=== PATIENT | male | born 1960 | race Caucasian/White ===

== ENCOUNTER 2017-11-04 23:19 | Inpatient (IN) | payer MEDICARE ==
[2017-11-05 00:22] LABS: Basophils % (A) 0 %; Eosinophils # (A) 0.3 k/uL (0-0.7); Eosinophils % (A) 3 %; HCT 43.4 % (39.0-53.0); HGB 13.7 gm/dL (13.0-17.5); Lymphocytes # (A) 2.6 k/uL (1.0-4.8); Lymphocytes % (A) 29 %; MCH 30.1 pg (25.0-35.0); MCHC 31.7 g/dL (31.0-37.0); Mean Platelet Volume 7.4; Monocytes # (A) 0.6 k/uL (0-1.0); Monocytes % (A) 7 %; Neutrophils # (A) 5.3 k/uL (1.3-7.7); Neutrophils % (A) 59 %; Platelet Count 204 k/uL (150-450); RBC 4.57 m/uL (4.30-5.90); RDW 13.8 % (11.5-15.5)
--- NOTE | 2017-11-05 00:22 | ED ---
General Adult HPI - General Chief complaint: Shortness of Breath Stated complaint: SOB Source: patient Mode of arrival: ambulatory Limitations: no limitations - History of Present Illness Initial comments: Dictation was produced using [employer] dictation software. please excuse any grammatical, word or spelling errors. Chief Complaint: 56-year-old male past medical history of COPD, diabetes, dyslipidemia, hypertension presents with 1 day of shortness of breath. History of Present Illness: States that he woke up today with some shortness of breath. Patient states his symptoms have been troublesome for the past couple months. Patient reports a 30 pound weight gain over the last 3 months. Patient denies any cardiac history. His have a history of COPD for which she takes steroid inhalers. Patient denies any constitutional symptoms. No cough productive of sputum. Patient has a history of blood clots. He reports worsening swelling to bilateral lower extremities. The ROS documented in this emergency department record has been reviewed and confirmed by me. Those systems with pertinent positive or negative responses have been documented in the HPI. All other systems are other negative and/or noncontributory. - Related Data Home Medications Medication Instructions Recorded Confirmed Bisoprolol-Hctz 5-6.25 mg [Ziac 1 each PO DAILY 08/19/15 08/21/15 5-6.25] Diphenox-Atrop 2.5-0.025 mg 1 each PO TID PRN 08/19/15 08/21/15 [Lomotil] Simvastatin [Zocor] 20 mg PO DAILY 08/19/15 08/21/15 Tamsulosin [Flomax] 0.4 mg PO DAILY 08/19/15 08/21/15 fentaNYL [Duragesic 75MCG/HR] 75 mcg TRANSDERM Q72H 08/19/15 08/21/15 Allergies Allergy/AdvReac Type Severity Reaction Status Date / Time No Known Allergies Allergy Verified 11/04/17 23:30 Review of Systems ROS Statement: Those systems with pertinent positive or pertinent negative responses have been documented in the HPI. ROS Other: All systems not noted in ROS Statement are negative. Past Medical History Past Medical History: Cancer, Diabetes Mellitus, Hyperlipidemia, Hypertension Additional Past Medical History / Comment(s): speech impediment. COLON CA-DX 5- 6 YRS AGO History of Any Multi-Drug Resistant Organisms: None Reported Past Surgical History: Heart Catheterization, Heart Catheterization With Stent, Hernia Repair Additional Past Surgical History / Comment(s): COLONOSCOPY Past Anesthesia/Blood Transfusion Reactions: No Reported Reaction Date of Last Stent Placement:: NOT SURE OF DATE Past Psychological History: No Psychological Hx Reported Smoking Status: Current every day smoker Past Alcohol Use History: None Reported Past Drug Use History: None Reported - Past Family History Mother Family Medical History: Cancer General Exam - General Exam Comments Initial Comments: PHYSICAL EXAM: General Impression: Alert and oriented x3, not in acute distress HEENT: Normocephalic atraumatic, extra-ocular movements intact, pupils equal and reactive to light bilaterally, mucous membranes moist. Cardiovascular: Heart regular rate and rhythm, S1&S2 audible, no murmurs, rubs or gallops Chest: Bilateral crackles Abdomen: Bowel sounds present, abdomen soft, non-tender, non-distended, no organomegaly Musculoskeletal: Pulses present and equal in all extremities, 3+ pitting edema to bilateral lower extremities Motor: Power 5/5 bilaterally, no focal deficits noted Neurological: CN II-XII grossly intact, no focal motor or sensory deficits noted Skin: Intact with no visualized rashes Psych: Normal affect and mood Limitations: no limitations Course Vital Signs 11/04/17 11/05/17 23:25 01:05 Temperature 98.2 F Pulse Rate 91 Respiratory 21 20 Rate Blood Pressure 166/88 O2 Sat by Pulse 97 Oximetry Medical Decision Making - Medical Decision Making ED course: 76-year-old male presents chief complaint of dyspnea. Vital signs upon arrival shows blood pressure 166/88. Patient having symptoms of orthopnea, lower extremity swelling. There is strong clinical suspicion that patient's symptoms represent congestive heart failure. Patient denies any history of CHF. EKG does not show any findings of ischemia.Laboratory evaluation obtained. Metabolic panel is unremarkable. Coag panel unremarkable. D-dimer is 0.71. Metabolic panel shows no acute processes. Chest x-ray was obtained showing interval improvement from most recent chest x- ray. Given elevated d-dimer CT angiogram of the chest was obtained. There is findings of bolus emphysema. However there are findings suggestive of left lower lobe pulmonary emboli. Patient given heparin bolus and started on heparin. Patient is hemodynamically stable right now. Patient be admitted to internal medicine for further evaluation. Cardiac enzymes are normal. No suspicion of submassive PE. This point no indication to place patient in selective or ICU. Patient admitted to the floor. EKG interpretation: Ventricular rate 78,. Interval 150, QRS 72, QTc 4:30 no findings to suggest right heart strain.. No HI prolongation, no QTC prolongation , no ST or T-wave changes noted. . Overall, this EKG is unremarkable - Lab Data Result diagrams: 11/05/17 00:12 11/05/17 00:12 Lab Results 11/05/17 11/05/17 11/05/17 Range/Units 00:12 00:12 00:12 WBC 9.0 (3.8-10.6) k/uL RBC 4.57 (4.30-5.90) m/uL Hgb 13.7 (13.0-17.5) gm/dL Hct 43.4 (39.0-53.0) % MCV 95.0 (80.0-100.0) fL MCH 30.1 (25.0-35.0) pg MCHC 31.7 (31.0-37.0) g/dL RDW 13.8 (11.5-15.5) % Plt Count 204 (150-450) k/uL Neutrophils % 59 % Lymphocytes % 29 % Monocytes % 7 % Eosinophils % 3 % Basophils % 0 % Neutrophils # 5.3 (1.3-7.7) k/uL Lymphocytes # 2.6 (1.0-4.8) k/uL Monocytes # 0.6 (0-1.0) k/uL Eosinophils # 0.3 (0-0.7) k/uL Basophils # 0.0 (0-0.2) k/uL PT (9.0-12.0) sec INR (<1.2) APTT (22.0-30.0) sec D-Dimer (<0.60) mg/L FEU Sodium 136 L (137-145) mmol/L Potassium 4.0 (3.5-5.1) mmol/L Chloride 106 (98-107) mmol/L Carbon Dioxide 23 (22-30) mmol/L Anion Gap 7 mmol/L BUN 18 (9-20) mg/dL Creatinine 0.90 (0.66-1.25) mg/dL Est GFR (CKD-EPI)AfAm >90 (>60 ml/min/1.73 sqM) Est GFR (CKD-EPI)NonAf >90 (>60 ml/min/1.73 sqM) Glucose 156 H (74-99) mg/dL Calcium 8.8 (8.4-10.2) mg/dL Magnesium 1.7 (1.6-2.3) mg/dL Total Bilirubin 0.3 (0.2-1.3) mg/dL AST 22 (17-59) U/L ALT 27 (21-72) U/L Alkaline Phosphatase 47 (38-126) U/L Total Creatine Kinase 99 (55-170) U/L CK-MB (CK-2) 0.9 (0.0-2.4) ng/mL CK-MB (CK-2) Rel Index 0.9 Troponin I <0.012 (0.000-0.034) ng/mL NT-Pro-B Natriuret Pep pg/mL Total Protein 6.4 (6.3-8.2) g/dL Albumin 3.7 (3.5-5.0) g/dL 11/05/17 11/05/17 Range/Units 00:12 00:12 WBC (3.8-10.6) k/uL RBC (4.30-5.90) m/uL Hgb (13.0-17.5) gm/dL Hct (39.0-53.0) % MCV (80.0-100.0) fL MCH (25.0-35.0) pg MCHC (31.0-37.0) g/dL RDW (11.5-15.5) % Plt Count (150-450) k/uL Neutrophils % % Lymphocytes % % Monocytes % % Eosinophils % % Basophils % % Neutrophils # (1.3-7.7) k/uL Lymphocytes # (1.0-4.8) k/uL Monocytes # (0-1.0) k/uL Eosinophils # (0-0.7) k/uL Basophils # (0-0.2) k/uL PT 9.7 (9.0-12.0) sec INR 1.0 (<1.2) APTT 24.7 (22.0-30.0) sec D-Dimer 0.71 H (<0.60) mg/L FEU Sodium (137-145) mmol/L Potassium (3.5-5.1) mmol/L Chloride (98-107) mmol/L Carbon Dioxide (22-30) mmol/L Anion Gap mmol/L BUN (9-20) mg/dL Creatinine (0.66-1.25) mg/dL Est GFR (CKD-EPI)AfAm (>60 ml/min/1.73 sqM) Est GFR (CKD-EPI)NonAf (>60 ml/min/1.73 sqM) Glucose (74-99) mg/dL Calcium (8.4-10.2) mg/dL Magnesium (1.6-2.3) mg/dL Total Bilirubin (0.2-1.3) mg/dL AST (17-59) U/L ALT (21-72) U/L Alkaline Phosphatase (38-126) U/L Total Creatine Kinase (55-170) U/L CK-MB (CK-2) (0.0-2.4) ng/mL CK-MB (CK-2) Rel Index Troponin I (0.000-0.034) ng/mL NT-Pro-B Natriuret Pep 100 pg/mL Total Protein (6.3-8.2) g/dL Albumin (3.5-5.0) g/dL Disposition Clinical Impression: Pulmonary embolism Disposition: ADMITTED IP TO THIS HOSP Condition: Fair Referrals: Jarret Morocho Jr, DO [Primary Care Provider] - 1-2 days Time of Disposition: 01:59
[2017-11-05 00:31] LABS: ALT 27 U/L (21-72); AST 22 U/L (17-59); Albumin 3.7 g/dL (3.5-5.0); Alkaline Phosphatase 47 U/L (38-126); Anion Gap 7 mmol/L; Blood Urea Nitrogen 18 mg/dL (9-20); Calcium 8.8 mg/dL (8.4-10.2); Carbon Dioxide 23 mmol/L (22-30); Chloride 106 mmol/L (98-107); Glucose 156 mg/dL (74-99); Magnesium 1.7 mg/dL (1.6-2.3); Sodium 136 mmol/L (137-145); Total Bilirubin 0.3 mg/dL (0.2-1.3); Total Protein 6.4 g/dL (6.3-8.2)
--- NOTE | 2017-11-05 00:41 | XR ---
EXAMINATION TYPE: XR chest 2V DATE OF EXAM: 11/05/2017 COMPARISON: NONE HISTORY: Short of breath TECHNIQUE: Frontal and lateral views of the chest are obtained. FINDINGS: There is no heart failure nor confluent pneumonic infiltrate. There is mild coarsening of interstitial markings. Heart size is normal. The thorax is intact. There are chest leads. IMPRESSION: No active cardiopulmonary disease. There is clearing of some atelectasis at the right mi nor fissure compared to old exam.
[2017-11-05 00:42] LABS: Creatine Kinase 99 U/L (55-170)
[2017-11-05 00:43] LABS: Partial Thromboplastin Time 24.7 sec (22.0-30.0); Prothrombin Time 9.7 sec (9.0-12.0)
[2017-11-05 00:56] LABS: Creatine Kinase MB 0.9 ng/mL (0.0-2.4); Troponin I <0.012 ng/mL (0.000-0.034)
[2017-11-05 00:59] LABS: D-Dimer 0.71 mg/L FEU (<0.60)
[2017-11-05] MEDS ORDERED: HEPARIN SODIUM,PORCINE 10,000 UNIT/ML 1 ML VIAL IV ONE (01:40)
[2017-11-05] MEDS ORDERED: HEPARIN SODIUM,PORCINE 5,000 UNIT/ML 1 ML VIAL IV PRN (01:40)
--- NOTE | 2017-11-05 01:41 | CT ---
EXAMINATION TYPE: CT angio chest DATE OF EXAM: 11/05/2017 1:23 AM COMPARISON: None HISTORY: R/O PE CT DLP: 800.30 mGycm Automated exposure control for dose reduction was used. CONTRAST: CTA scan of the thorax is performed with IV Contrast, patient injected with 70 mL of Isovue 370, pulm onary embolism protocol. There are 3-D post processed images. FINDINGS: There is some bullous emphysema and more at the right lung apex. There is a 1 cm in the right paratra cheal lymph node. There is a 2 cm left side paratracheal lymph node. There is no evidence of a pulmon genoveva mass. There is suboptimal contrast density in the pulmonary arteries. There appears to be a trans ition in the left lower lobe pulmonary artery that is somewhat suspicious for embolism in branches of the left lower lobe pulmonary artery. Thoracic aorta shows no evidence of aneurysm or dissection. Th ere is no pericardial effusion. The bony thorax is intact. IMPRESSION: THERE IS BULLOUS EMPHYSEMA. MILD FIBROTIC CHANGES IN THE RIGHT UPPER LOBE. FINDINGS ARE SOMEWHAT SUSPICIOUS FOR PULMONARY EMBOLISM IN THE LEFT LOWER LOBE PULMONARY ARTERY. THER E IS SUBOPTIMAL CONTRAST DENSITY IN THE SMALLER BRANCHES OF THE PULMONARY ARTERIES. EXAM WAS DISCUSSE D WITH ER PHYSICIAN AT 1:35 AM.
[2017-11-05] MEDS ORDERED: HEPARIN SOD,PORK IN 0.45% NACL 25,000 UNIT in 0.45% NACL 1 500ML.BAG IV SCH (01:45)
[2017-11-05] MEDS ORDERED: NALOXONE 0.4 MG/ML 1 ML VIAL IV PRN (02:05)
[2017-11-05 02:21] VITALS: RESP 18
[2017-11-05 02:56] VITALS: BMI 45.1
[2017-11-05] MEDS ORDERED: DIPHENOX-ATROP 2.5-0.025 MG 1 EACH TAB PO PRN (08:26)
[2017-11-05] MEDS ORDERED: BUDESONIDE 0.5 MG/2 ML NEBU INHALATION SCH (09:00)
[2017-11-05] MEDS ORDERED: SYMBICORT 160-4.5 MCG INHALER INHALATION SCH (09:00)
[2017-11-05] MEDS ORDERED: NICOTINE 21MG/24HR PATCH TRANSDERM SCH (09:00)
[2017-11-05] MEDS ORDERED: BISOPROLOL-HCTZ 5-6.25 MG 1 EACH TAB PO SCH (09:00)
[2017-11-05] MEDS ORDERED: TAMSULOSIN 0.4 MG CAP.ER.24H PO SCH (09:00)
[2017-11-05] MEDS ORDERED: PANTOPRAZOLE 40 MG TABLET PO SCH (09:00)
[2017-11-05] MEDS ORDERED: FORMOTEROL FUMARATE 20 MCG/2 ML NEBU INHALATION SCH (09:05)
[2017-11-05] MEDS ORDERED: ALBUTEROL NEBULIZED 2.5 MG/3 ML INHALATION PRN (09:06)
[2017-11-05 11:04] VITALS: TEMP 97.1
--- NOTE | 2017-11-05 11:20 | US ---
EXAMINATION TYPE: US venous doppler duplex LE DATE OF EXAM: 11/05/2017 10:37 AM COMPARISON: None CLINICAL HISTORY: eval for DVT, patient + for PE. On heparin, bilateral knee pain per patient. No hx of blood clots. SIDE PERFORMED: Bilateral TECHNIQUE: The lower extremity deep venous system is examined utilizing real time linear array sonog darinel with graded compression, doppler sonography and color-flow sonography. VESSELS IMAGED: External Iliac Vein (EIV) Common Femoral Vein Deep Femoral Vein Greater Saphenous Vein * Femoral Vein Popliteal Vein Small Saphenous Vein * Proximal Calf Veins (* superficial vessels) Grayscale, color doppler, spectral doppler imaging performed of the deep veins of the lower extremiti es. There is normal flow, compressibility, vascular waveforms. Right Leg: Negative for DVT Left Leg: Negative for DVT IMPRESSION: No sonographic evidence of deep venous thrombosis within either lower extremity.
[2017-11-05 11:30] LABS: Glucose,Whole Blood 111 mg/dL (75-99)
--- NOTE | 2017-11-05 12:14 | ECHOF ---
Referral Reason:increasing LE edema per patient, LV function MEASUREMENTS -------- HEIGHT: 188.0 cm WEIGHT: 159.2 kg BP: 143/82 RVIDd: 3.0 cm (< 3.3) IVSd: 1.4 cm (0.6 - 1.1) LVIDd: 4.7 cm (3.9 - 5.3) LVPWd: 1.3 cm (0.6 - 1.1) IVSs: 2.0 cm LVIDs: 3.0 cm LVPWs: 1.9 cm LA Diam: 4.0 cm (2.7 - 3.8) LAESV Index (A-L): 21.70 ml/m Ao Diam: 3.4 cm (2.0 - 3.7) AV Cusp: 2.1 cm (1.5 - 2.6) MV EXCURSION: 15.119 mm (> 18.000) MV EF SLOPE: 97 mm/s (70 - 150) EPSS: 0.5 cm MV E Matt: 1.24 m/s MV DecT: 223 ms MV A Matt: 1.18 m/s MV E/A Ratio: 1.05 AV maxP.00 mmHg AV maxP.00 mmHg AV meanP.39 mmHg RAP: 5.00 mmHg RVSP: 31.05 mmHg FINDINGS -------- Sinus rhythm. This was a technically adequate study. The left ventricular size is normal. There is moderate concentric left ventricular hypertrophy. O verall left ventricular systolic function is normal with, an EF between 55 - 60 %. The right ventricle is normal in size. Normal LA size by volume 22+/-6 ml/m2. The right atrium is normal in size. There is mild aortic valve sclerosis. There is mild aortic stenosis present. Peak/mean gradient a cross the Aortic Valve is 22.00mmHg / 11.39mmHg. The mitral valve is normal. The tricuspid valve appears structurally normal. There is no pulmonic regurgitation present. The aortic root size is normal. Normal inferior vena cava with normal inspiratory collapse consistent with estimated right atrial pre ssure of 5 mmHg. There is no pericardial effusion. CONCLUSIONS -------- 1. Sinus rhythm. 2. This was a technically adequate study. 3. The left ventricular size is normal. 4. There is moderate concentric left ventricular hypertrophy. 5. Overall left ventricular systolic function is normal with, an EF between 55 - 60 %. 6. The right ventricle is normal in size. 7. Normal LA size by volume 22+/-6 ml/m2. 8. The right atrium is normal in size. 9. There is mild aortic valve sclerosis. 10. There is mild aortic stenosis present. 11. Peak/mean gradient across the Aortic Valve is 22.00mmHg / 11.39mmHg. 12. The mitral valve is normal. 13. The tricuspid valve appears structurally normal. 14. There is no pulmonic regurgitation present. 15. The aortic root size is normal. 16. Normal inferior vena cava with normal inspiratory collapse consistent with estimated right atrial pressure of 5 mmHg. 17. There is no pericardial effusion. EXPEDITION SUPERVISOR: Daphne Mitchell RDCS
[2017-11-05] MEDS: INSULIN ASPART 100 UNIT/ML 1 ML 10 ML VIAL SQ SCH ×2 (12:23→17:20)
[2017-11-05] MEDS ORDERED: FUROSEMIDE 20 MG TAB PO SCH (12:30)
[2017-11-05] MEDS ORDERED: LISINOPRIL 5 MG TAB PO SCH (12:30)
--- NOTE | 2017-11-05 12:32 | P.PN ---
Progress Note - Text This is an addendum to the dictated cardiology consultation. The patient presents with symptoms progressive dyspnea. He has no prior documented history of CAD, he has underwent cardiac catheterization in 2008 and at that time he had no evidence of obstructive disease within normal limits ventricle size and systolic function. He has been complaining of progressive dyspnea not associated with any chest discomfort. He has chronic peripheral edema that is worse now. He has a history of chronic tobacco use was up to 2 packs a day. He has a cough but no fever. He has no history of clear PND or orthopnea. No dizziness or palpitations or syncope. His physical examination shows no evidence of lung congestion with 2-3+ peripheral edema. He is in sinus mechanism and he is obese. His CT angiogram of the chest shows a questionable subsegmental pulmonary embolism. His symptoms of peripheral edema and dyspnea do not appear to be related to acute CHF and most likely are related to his chronic obstructive lung disease and may benefit from pulmonary evaluation. They pulmonary embolism diagnosis is not clear, he has no evidence of DVT. I would add to his regimen diuretics, adjust his antihypertensive regimen, obtain an echocardiogram with Doppler and depending on his progress further recommendations will be made. Thank you for this consult we will follow with you.
[2017-11-05 12:33] VITALS: BP 124/59; PULSE 80
--- NOTE | 2017-11-05 13:06 | P.CNPUL ---
History of Present Illness Consult date: 11/05/17 Reason for consult: dyspnea, cough, COPD, hypoxemia, pulmonary embolism, abnormal CXR/CT Chief complaint: Shortness of breath History of present illness: Pulmonary consult dated 11/05/2017 This is a 56-year-old male with a history of COPD diabetes hyperlipidemia hypertension who presents with sudden shortness of breath. He apparently woke up on the day of admission with difficulty breathing. The patient does admit to more chronic shortness of breath which is been going on for probably months or so prior to this admission. In addition, he is getting quite a bit of weight over the last 3-6 months. He denies any chest pain or chest discomfort. He does admit to some cough. Some shortness of breath along with wheezing and chest tightness. He is a heavy smoker and likely has some underlying COPD as well. In addition, he does complain of significant lower extremity edema. The patient was seen in the emergency room had a chest x-ray and a CT angiogram. A chest x-ray was essentially normal. The CT entrance suggested a left lower lobe pulmonary embolism. It wasn't clear-cut because of the timing of the bolus but it appears that that's probably was going on. It could also be COPD. He has no triggers or provoking factors for this patient should be treated for 6 months. He states she's feeling much better today than he did yesterday. Would like to be discharged home. He could be started on a factor X a inhibitor and discharged today if the primary service agrees. In addition to the above, he does have a history of hypertension hyperlipidemia diabetes. It does have a history of colon cancer diagnosed 5 or 6 years ago. He has had a number of other surgical procedures. Review of Systems A 12 point review of system is positive for shortness of breath chest congestion and coughing. In addition, he has significant weight gain with significant looks 70 edema. His shortness of breath is all the time but more so with exertion. The shortness of breath which caused him to come to the hospital more abrupt in onset. Past Medical History Past Medical History: Cancer, Diabetes Mellitus, Hyperlipidemia, Hypertension Additional Past Medical History / Comment(s): speech impediment. COLON CA-DX 5- 6 YRS AGO History of Any Multi-Drug Resistant Organisms: None Reported Past Surgical History: Heart Catheterization, Heart Catheterization With Stent, Hernia Repair Additional Past Surgical History / Comment(s): COLONOSCOPY, cataract surg. Past Anesthesia/Blood Transfusion Reactions: No Reported Reaction Date of Last Stent Placement:: NOT SURE OF DATE 8-9 years ago Past Psychological History: No Psychological Hx Reported Smoking Status: Current some day smoker Past Alcohol Use History: None Reported Additional Past Alcohol Use History / Comment(s): SMOKES 1 1/2 PPD FOR PAST 35+ YRS Past Drug Use History: None Reported - Past Family History Mother Family Medical History: Cancer Medications and Allergies Home Medications Medication Instructions Recorded Confirmed Type Bisoprolol-Hctz 5-6.25 mg [Ziac 1 tab PO BID 08/19/15 11/05/17 History 5-6.25] Diphenox-Atrop 2.5-0.025 mg 1 tab PO TID PRN 08/19/15 11/05/17 History [Lomotil] Simvastatin [Zocor] 20 mg PO DAILY 08/19/15 11/05/17 History Tamsulosin [Flomax] 0.4 mg PO DAILY 08/19/15 11/05/17 History fentaNYL [Duragesic 75MCG/HR] 1 patch TRANSDERM Q72H 08/19/15 11/05/17 History Albuterol Inhaler [Ventolin Hfa 1 - 2 puff INHALATION RT-Q6H PRN 11/05/17 History Inhaler] Ipratropium/Albuterol Sulfate 1 - 2 puff INHALATION RT-QID 11/05/17 11/05/17 History [Combivent Respimat Inhaler] Allergies Allergy/AdvReac Type Severity Reaction Status Date / Time No Known Allergies Allergy Verified 11/05/17 08:58 Physical Exam Osteopathic Statement: *. No significant issues noted on an osteopathic structural exam other than those noted in the History and Physical/Consult. Vitals: Vital Signs Temp Pulse Pulse Pulse Resp BP BP 11/05/17 12:00 80 124/59 11/05/17 08:00 97.1 F L 75 146/72 11/05/17 04:00 97.7 F 78 78 18 143/82 11/05/17 02:24 98.6 F 11/05/17 02:19 76 18 145/93 11/05/17 01:05 20 11/04/17 23:25 98.2 F 91 21 166/88 Pulse Ox 11/05/17 12:00 95 11/05/17 08:00 97 11/05/17 04:00 98 11/05/17 02:24 11/05/17 02:19 99 11/05/17 01:05 11/04/17 23:25 97 Intake and Output 11/04/17 11/05/17 11/05/17 22:59 06:59 14:59 Intake Total 240 Output Total 1700 Balance -1460 Intake: Oral 240 Output: Urine 1700 Other: # Bowel Movements 1 Weight 159.3 kg No acute distress, oriented 3. HEENT examination is grossly unremarkable. Mucous membranes are moist. No oral lesions. Neck supple. Full range of motion. No adenopathy thyromegaly or neck vein distention. Cardiovascular examination reveals regular rhythm rate. S1-S2 normal. No S3 or S4. No discernible murmur noted. Lungs reveal diminished breath sounds. Breath sounds equal. A few scattered rhonchi. Some mild wheezes noted. Abdomen soft bowel sounds are heard. No masses or tenderness. Extremities reveal significant pitting edema. No cyanosis or clubbing. Skin is without rash or lesion. Neurologic examination is brief but nonfocal. Results - Laboratory Findings CBC and BMP: 11/05/17 00:12 11/05/17 00:12 PT/INR, D-dimer PT 9.7 sec (9.0-12.0) 11/05/17 00:12 INR 1.0 (<1.2) 11/05/17 00:12 D-Dimer 0.71 mg/L FEU (<0.60) H 11/05/17 00:12 Abnormal lab findings: Abnormal Labs 11/05/17 11/05/17 11/05/17 00:12 00:12 05:58 APTT 76.8 H D-Dimer 0.71 H Sodium 136 L Glucose 156 H POC Glucose (mg/dL) 11/05/17 11:17 APTT D-Dimer Sodium Glucose POC Glucose (mg/dL) 111 H - Diagnostic Findings Chest x-ray: report reviewed, image reviewed CT scan - chest: report reviewed, image reviewed U/S of Legs: report reviewed, image reviewed (Chest x-ray, labs, and medications are all reviewed.) Assessment and Plan Assessment: Assessment Probable left lower lobe pulmonary embolism, unprovoked. Likely COPD, secondary to tobacco use, although patient has never had pulmonary function testing History of colon cancer, remote Diabetes mellitus Hyperlipidemia Hypertension Obesity CAD with previous catheterization and stent Ongoing tobacco abuse Plan: Plan dated 11/05/2017 The patient could be discharged on a factor X a inhibitor. The patient should be treated for about 6 months since this appears to be an unprovoked pulmonary embolism. The patient is counseled about the importance of smoking cessation and should have a formal pulmonary consultation including a complete pulmonary function test. The patient did have an echocardiogram although the official result is not noted. The patient's lower extremity Dopplers are both negative. Additional recommendations and suggestions are forthcoming. Prognosis is guarded. Time with Patient: Greater than 30
--- NOTE | 2017-11-05 13:47 | P.CRDCN ---
History of Present Illness Consult date: 11/05/17 Requesting physician: Vasile Brito Reason for Consult (text): LE edema, PE, history of stents Chief complaint: shortness of breath History of present illness: This is a 56-year-old gentleman who does not follow regularly with a skiing teacher. He is somewhat of a poor historian. He has an apparent history of CAD with stent placement 30+ years ago for [place] and again here in [place] and over 10 years ago, these details are unavailable at this time, COPD, diabetes, hypertension and colon cancer. He is a current smoker and has smoked for many years. He presented to the emergency department with complaints of worsening shortness of breath for which he thought was COPD exacerbation and humidity. He has also noticed a 30 pound weight gain and worsening lower extremity edema. D-dimer came back to be elevated and computed tomography scan showed bullous emphysema, mild fibrotic changes in the right upper lobe and somewhat suspicious for PE in the left lower lobe pulmonary artery. EKG showed normal sinus rhythm. NT proBNP did not come back to be elevated at 100. Troponin was negative 1. Venous duplex of the lower extremities is negative for DVT and chest x-ray showed no active cardiopulmonary disease. Upon examination, patient is sitting up at the side of the bed. He feels his breathing has much improved due to the air conditioning. Blood pressure is mildly elevated 140s over 80s to 90s. He is afebrile. Heart rate is in the 70s. He is 97% on room air this morning. Past Medical History Past Medical History: Cancer, Diabetes Mellitus, Hyperlipidemia, Hypertension Additional Past Medical History / Comment(s): speech impediment. COLON CA-DX 5- 6 YRS AGO History of Any Multi-Drug Resistant Organisms: None Reported Past Surgical History: Heart Catheterization, Heart Catheterization With Stent, Hernia Repair Additional Past Surgical History / Comment(s): COLONOSCOPY, cataract surg. Past Anesthesia/Blood Transfusion Reactions: No Reported Reaction Date of Last Stent Placement:: NOT SURE OF DATE 8-9 years ago Past Psychological History: No Psychological Hx Reported Smoking Status: Current some day smoker Past Alcohol Use History: None Reported Additional Past Alcohol Use History / Comment(s): SMOKES 1 1/2 PPD FOR PAST 35+ YRS Past Drug Use History: None Reported - Past Family History Mother Family Medical History: Cancer Medications and Allergies Home Medications Medication Instructions Recorded Confirmed Type Bisoprolol-Hctz 5-6.25 mg [Ziac 1 tab PO BID 08/19/15 11/05/17 History 5-6.25] Diphenox-Atrop 2.5-0.025 mg 1 tab PO TID PRN 08/19/15 11/05/17 History [Lomotil] Simvastatin [Zocor] 20 mg PO DAILY 08/19/15 11/05/17 History Tamsulosin [Flomax] 0.4 mg PO DAILY 08/19/15 11/05/17 History fentaNYL [Duragesic 75MCG/HR] 1 patch TRANSDERM Q72H 08/19/15 11/05/17 History Albuterol Inhaler [Ventolin Hfa 1 - 2 puff INHALATION RT-Q6H PRN 11/05/17 History Inhaler] Ipratropium/Albuterol Sulfate 1 - 2 puff INHALATION RT-QID 11/05/17 11/05/17 History [Combivent Respimat Inhaler] Allergies Allergy/AdvReac Type Severity Reaction Status Date / Time No Known Allergies Allergy Verified 11/05/17 08:58 Physical Exam Vitals: Vital Signs Temp Pulse Pulse Pulse Resp BP BP 11/05/17 08:00 97.1 F L 75 146/72 11/05/17 04:00 97.7 F 78 78 18 143/82 11/05/17 02:24 98.6 F 11/05/17 02:19 76 18 145/93 11/05/17 01:05 20 11/04/17 23:25 98.2 F 91 21 166/88 Pulse Ox 11/05/17 08:00 97 11/05/17 04:00 98 11/05/17 02:24 11/05/17 02:19 99 11/05/17 01:05 11/04/17 23:25 97 Intake and Output 11/04/17 11/05/17 11/05/17 22:59 06:59 14:59 Other: Weight 159.3 kg PHYSICAL EXAMINATION: HEENT: Head is atraumatic, normocephalic. Pupils equal, round. Neck is supple. There is no elevated jugular venous pressure. HEART EXAMINATION: Heart sounds regular, S1 and S2 normal. No murmur or gallop heard. CHEST EXAMINATION: Lungs hernandez diminished air entry bilaterally with expiratory wheezing throughout. No chest wall tenderness is noted on palpation or with deep breathing. ABDOMEN: Soft, obese, nontender. Bowel sounds are heard. No organomegaly noted. EXTREMITIES: Diminished peripheral pulses with evidence of reflux peripheral edema and no calf tenderness noted. NEUROLOGIC patient is awake, alert and oriented x3. . Results 11/05/17 00:12 11/05/17 00:12 Cardiac Enzymes 11/05/17 11/05/17 Range/Units 00:12 00:12 AST 22 (17-59) U/L CK-MB (CK-2) 0.9 (0.0-2.4) ng/mL Troponin I <0.012 (0.000-0.034) ng/mL Coagulation 11/05/17 11/05/17 Range/Units 00:12 05:58 PT 9.7 (9.0-12.0) sec APTT 24.7 76.8 H (22.0-30.0) sec CBC 11/05/17 Range/Units 00:12 WBC 9.0 (3.8-10.6) k/uL RBC 4.57 (4.30-5.90) m/uL Hgb 13.7 (13.0-17.5) gm/dL Hct 43.4 (39.0-53.0) % Plt Count 204 (150-450) k/uL Comprehensive Metabolic Panel 11/05/17 Range/Units 00:12 Sodium 136 L (137-145) mmol/L Potassium 4.0 (3.5-5.1) mmol/L Chloride 106 (98-107) mmol/L Carbon Dioxide 23 (22-30) mmol/L BUN 18 (9-20) mg/dL Creatinine 0.90 (0.66-1.25) mg/dL Glucose 156 H (74-99) mg/dL Calcium 8.8 (8.4-10.2) mg/dL AST 22 (17-59) U/L ALT 27 (21-72) U/L Alkaline Phosphatase 47 (38-126) U/L Total Protein 6.4 (6.3-8.2) g/dL Albumin 3.7 (3.5-5.0) g/dL Current Medications Generic Name Dose Route Start Last Admin Trade Name Freq PRN Reason Stop Dose Admin Albuterol Sulfate 2.5 mg 07/27/18 09:06 Ventolin Nebulized INHALATION RT-Q1H PRN Shortness Of Breath Or Wheezing Atorvastatin Calcium 10 mg 11/05/17 21:00 Lipitor PO HS [facility] Bisoprolol Fumarate 1 each 11/05/17 09:00 11/05/17 10:59 Ziac 5-6.25 PO 1 each DAILY HARINDER Administration Budesonide 0.5 mg 11/05/17 09:00 11/05/17 11:27 Pulmicort INHALATION Not Given BID [facility] Diphenoxylate HCl/Atropine 1 each 11/05/17 08:26 Lomotil PO TID PRN Diarrhea Fentanyl 1 patch 11/05/17 09:00 11/05/17 10:58 Duragesic 75mcg/Hr Patch TRANSDERM Not Given Q72H [facility] Formoterol Fumarate 20 mcg 11/05/17 09:05 11/05/17 11:27 Perforomist INHALATION Not Given RT-BID [facility] Heparin Sodium (Porcine) 0 unit 11/05/17 01:40 Heparin IV PER PROTOCOL PRN Low PTT Protocol Heparin Sodium/Sodium Chloride 500 mls @ 46.25 mls/hr 11/05/17 01:45 02:18 25,000 unit/ Sodium Chloride IV 14.42 units/kg/hr .[id number] HARINDER 46 mls/hr Administration Protocol 14.5 UNITS/KG/HR Insulin Aspart 0 unit 11/05/17 12:30 Novolog SQ ACHS [facility] Protocol Naloxone HCl 0.2 mg 11/05/17 02:05 Narcan IV Q2M PRN Opioid Reversal Nicotine 1 patch 11/05/17 09:00 11/05/17 10:59 Habitrol 21mg/24hr Patch TRANSDERM 1 patch DAILY [facility] Administration Pantoprazole Sodium 40 mg 11/05/17 09:00 11/05/17 10:59 Protonix PO 40 mg [id number] HARINDER Administration Tamsulosin HCl 0.4 mg 11/05/17 09:00 11/05/17 10:59 Flomax PO 0.4 mg DAILY HARINDER Administration Intake and Output 11/04/17 11/05/17 11/05/17 22:59 06:59 14:59 Other: Weight 159.3 kg 11/05/17 00:12 11/05/17 00:12 Assessment and Plan Assessment: #1 COPD #2 morbid obesity #3 nicotine dependence #4 hypertension #5 possible PE #6 lower extremity edema with normal NT proBNP and no evidence of failure on chest x-ray #7 history of normal coronaries by angiography in 2008 #8 probable FADY Plan: From cardiology's perspective, we will await echocardiogram results. Start the patient on diuretics.We will monitor renal function and electrolytes. The patient will require further evaluation for sleep apnea. We will continue to follow the patient and provide further recommendations accordingly. CONCRETE BUCKET UNLOADER note has been reviewed, I agree with a documented findings and plan of care. Patient was seen and examined.
--- NOTE | 2017-11-05 15:27 | P.HPIM ---
History of Present Illness H&P Date: 11/05/17 Chief Complaint: Shortness of breath 56-year-old male who presented to the emergency room with a chief complaint of shortness of breath. The patient reports shortness of breath lasting approximately one day. Patient denies cough or sputum production. He does report a history of COPD. 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 He complains of increasing swelling to bilateral lower extremities. He reports a weight gain of about 25-30 lbs over the past few months. He states he has no prior history of heart failure. He does report history of stents x 2 (one performed in [place] and the other in [place]). He is unable to recall the year in which these took place and is unable to state the physician he was seeing in [place]. The patient also has a history of diabetes mellitus, hypertension, hyperlipidemia, and colon cancer. He is a current smoker and reports smoking about a pack a day. Chest x-ray was negative for acute process. Laboratory data: WBC 9.0. Hemoglobin 13.7. Platelet count 204. Sodium 136. Potassium 4.0. BUN 18. Creatinine 0.90. Glucose 156. Magnesium 1.7. Troponin negative x 1. BNP 100. The patients d-dimer was elevated at 0.71. Patient underwent CTA of the chest which revealed pulmonary embolus in the left lower lobe. Patient reports no previous history of blood clots. He was started on a heparin drip and admitted to the hospital under the care of Dr. Brito. Review of Systems Those systems with pertinent positive or pertinent negative responses have been documented in the HPI Past Medical History Past Medical History: Cancer, Diabetes Mellitus, Hyperlipidemia, Hypertension Additional Past Medical History / Comment(s): speech impediment. COLON CA-DX 5- 6 YRS AGO History of Any Multi-Drug Resistant Organisms: None Reported Past Surgical History: Heart Catheterization, Heart Catheterization With Stent, Hernia Repair Additional Past Surgical History / Comment(s): COLONOSCOPY, cataract surg. Past Anesthesia/Blood Transfusion Reactions: No Reported Reaction Date of Last Stent Placement:: NOT SURE OF DATE 8-9 years ago Past Psychological History: No Psychological Hx Reported Smoking Status: Current some day smoker Past Alcohol Use History: None Reported Additional Past Alcohol Use History / Comment(s): SMOKES 1 1/2 PPD FOR PAST 35+ YRS Past Drug Use History: None Reported - Past Family History Mother Family Medical History: Cancer Medications and Allergies Home Medications Medication Instructions Recorded Confirmed Type Bisoprolol-Hctz 5-6.25 mg [Ziac 1 tab PO BID 08/19/15 11/05/17 History 5-6.25 MG] Diphenox-Atrop 2.5-0.025 mg 1 tab PO TID PRN 08/19/15 11/05/17 History [Lomotil] Simvastatin [Zocor] 20 mg PO DAILY 08/19/15 11/05/17 History Tamsulosin [Flomax] 0.4 mg PO DAILY 08/19/15 11/05/17 History fentaNYL [Duragesic 75MCG/HR] 1 patch TRANSDERM Q72H 08/19/15 11/05/17 History Albuterol Inhaler [Ventolin Hfa 1 - 2 puff INHALATION RT-Q6H PRN 11/05/17 History Inhaler] Furosemide [Lasix] 20 mg PO BID #60 tab 11/05/17 Rx Ipratropium/Albuterol Sulfate 1 - 2 puff INHALATION RT-QID 11/05/17 11/05/17 History [Combivent Respimat Inhaler] Lisinopril [Zestril] 5 mg PO BID #60 tab 11/05/17 Rx Potassium Chloride ER [K-Dur 20] 20 meq PO DAILY #30 tab 11/05/17 Rx Rivaroxaban [Xarelto] 15 mg PO BID-W/MEALS #42 tab 11/05/17 Rx Allergies Allergy/AdvReac Type Severity Reaction Status Date / Time No Known Allergies Allergy Verified 11/05/17 08:58 Physical Exam Vitals: Vital Signs Temp Pulse Pulse Pulse Resp BP BP 11/05/17 08:00 97.1 F L 75 146/72 11/05/17 04:00 97.7 F 78 78 18 143/82 11/05/17 02:24 98.6 F 11/05/17 02:19 76 18 145/93 11/05/17 01:05 20 11/04/17 23:25 98.2 F 91 21 166/88 Pulse Ox 11/05/17 08:00 97 11/05/17 04:00 98 11/05/17 02:24 11/05/17 02:19 99 11/05/17 01:05 11/04/17 23:25 97 Intake and Output 11/04/17 11/05/17 11/05/17 22:59 06:59 14:59 Other: Weight 159.3 kg GENERAL: This is a 56-year-old male in no apparent distress at the time of examination, but appears to have poor hygiene with strong body odor present. HEENT: Head is atraumatic, normocephalic. Pupils are equal, round, and reactive to light. Sclerae anicteric. Conjunctivae are clear. Mucus membranes of the mouth are moist. Neck is supple. RESPIRATORY: Diminished breath sounds to left lower lobe. Mild expiratory wheezing noted. No use of accessory muscles. Patient maintaining oxygen saturation greater than 92%. No chest wall tenderness is noted on palpation or with deep breathing. CARDIOVASCULAR: Regular rate and rhythm. S1 and S2 noted. No JVD noted. No S3 or S4 noted. GASTROINTESTINAL: No distention noted. Abdomen soft and round. Normal active bowel sounds auscultated x 4 quadrants. No pain or tenderness noted upon palpation. INTEGUMENTARY: No cyanosis. No jaundice. No rashes noted. No cellulitis noted. EXTREMITIES: 1+ peripheral pulses. +2-3 bilateral lower extremity edema, worse near ankles. No calf tenderness noted. NEUROLOGIC: Cranial nerves II-XII intact. PSYCHIATRIC: Awake, alert, and oriented X 3. Appropriate affect. Intact judgement and insight. Results CBC & Chem 7: 11/05/17 00:12 11/05/17 00:12 Labs: Abnormal Lab Results - Last 24 Hours (Table) 11/05/17 11/05/17 11/05/17 Range/Units 00:12 00:12 05:58 APTT 76.8 H (22.0-30.0) sec D-Dimer 0.71 H (<0.60) mg/L FEU Sodium 136 L (137-145) mmol/L Glucose 156 H (74-99) mg/dL Thrombosis Risk Factor Assmnt - Choose All That Apply Any of the Below Risk Factors Present?: Yes Each Factor Represents 1 point: Abnormal pulmonary function (COPD), Medical pt on bed rest, Obesity (BMI >25), Swollen legs (current) Other Risk Factors: Yes Each Risk Factor Represents 3 Points: History of DVT/PE Thrombosis Risk Factor Assessment Total Risk Factor Score: 7 Thrombosis Risk Factor Assessment Level: High Risk Assessment and Plan Plan: ASSESSMENT: Left lower lobe pulmonary embolism Chronic obstructive pulmonary disease History of CAD with previous stent placement x 2-per patient Hypertension Hyperlipidemia Diabetes Mellitus, Type II History of colon cancer Morbid obesity: BMI 45.1 Nicotine dependence, patient is a current cigarette smoker PLAN: Consult pulmonary Due to patients LE edema and history of CAD, will consult cardiology for evaluation Doppler LE Echocardiogram Nicotine patch Home meds as appropriate Monitor labs GI prophylaxis: Protonix 40 mg PO Daily DVT prophylaxis: Heparin drip Monitor vital signs and address as appropriate Discharge planning: Patient to return home when stable Further recommendations pending patient's course Nurse practitioner note has been reviewed by physician. Signing provider agrees with the documented findings, assessment, and plan of care.
--- NOTE | 2017-11-05 15:33 | P.DS ---
Providers Date of admission: 11/05/17 01:59 Expected date of discharge: 11/05/17 Attending physician: Vasile Brito Consults: 11/05/17 08:29 Consult Physician Routine Consulting Provider: Morgan Blanc Consult Reason/Comments: PE, hx of COPD Do you want consulting provider notified?: Yes 11/05/17 09:24 Consult Physician Routine Consulting Provider: Angelica Soto Consult Reason/Comments: c/o increased LE edema, PE, hx of stents, does not see [facility] Do you want consulting provider notified?: Yes Primary care physician: [facility] Course: 56-year-old male who presented to the emergency room with a chief complaint of shortness of breath. The patient reports shortness of breath lasting approximately one day. Patient denies cough or sputum production. He does report a history of COPD. 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 He complains of increasing swelling to bilateral lower extremities. He reports a weight gain of about 25-30 lbs over the past few months. He states he has no prior history of heart failure. He does report history of stents x 2 (one performed in [place] and the other in [place]). He is unable to recall the year in which these took place and is unable to state the physician he was seeing in [place]. The patient also has a history of diabetes mellitus, hypertension, hyperlipidemia, and colon cancer. He is a current smoker and reports smoking about a pack a day. Chest x-ray was negative for acute process. Laboratory data: WBC 9.0. Hemoglobin 13.7. Platelet count 204. Sodium 136. Potassium 4.0. BUN 18. Creatinine 0.90. Glucose 156. Magnesium 1.7. Troponin negative x 1. BNP 100. The patients d-dimer was elevated at 0.71. Patient underwent CTA of the chest which revealed pulmonary embolus in the left lower lobe. Patient reports no previous history of blood clots. He was started on a heparin drip and admitted to the hospital under the care of Dr. Brito. Patient was seen and examined by cardiology, who felt that the patient's symptoms were likely not cardiac in nature. He was started on lisinopril 5 mg by mouth twice a day for better blood pressure control and Lasix 20 mg by mouth twice a day for his lower extremity edema. The patient had an echocardiogram completed which revealed a normal LV function. Doppler of the bilateral lower extremities was negative for DVT. The patient was also evaluated by pulmonary and cleared for discharge from their standpoint. The patient was started on Xarelto 15 mg twice a day for 21 day course. A prescription was sent to the patient's preferred pharmacy for this dosing. The patient will follow up with his primary care physician and will receive additional prescriptions for Xarelto after the initial 21 days from PCP. Prescription cirrhosis sent to the patient's preferred pharmacy for lisinopril and Lasix. He was deemed stable for discharge per Dr. Brito. He is to follow up on an outpatient basis. DISCHARGE DIAGNOSIS: Left lower lobe pulmonary embolism Chronic obstructive pulmonary disease History of CAD with previous stent placement x 2-per patient Hypertension Hyperlipidemia Diabetes Mellitus, Type II History of colon cancer Morbid obesity: BMI 45.1 Nicotine dependence, patient is a current cigarette smoker Nurse practitioner note has been reviewed by physician. Signing provider agrees with the documented findings, assessment, and plan of care. Patient Condition at Discharge: Stable Plan - Discharge Summary Discharge Rx Participant: No New Discharge Prescriptions: New Furosemide [Lasix] 20 mg PO BID #60 tab Lisinopril [Zestril] 5 mg PO BID #60 tab Potassium Chloride ER [K-Dur 20] 20 meq PO DAILY #30 tab Rivaroxaban [Xarelto] 15 mg PO BID-W/MEALS #42 tab Continue fentaNYL [Duragesic 75MCG/HR] 1 patch TRANSDERM Q72H Tamsulosin [Flomax] 0.4 mg PO DAILY Bisoprolol-Hctz 5-6.25 mg [Ziac 5-6.25 MG] 1 tab PO BID Simvastatin [Zocor] 20 mg PO DAILY Diphenox-Atrop 2.5-0.025 mg [Lomotil] 1 tab PO TID PRN PRN Reason: Diarrhea Ipratropium/Albuterol Sulfate [Combivent Respimat Inhaler] 1 - 2 puff INHALATION RT-QID Albuterol Inhaler [Ventolin Hfa Inhaler] 1 - 2 puff INHALATION RT-Q6H PRN PRN Reason: Shortness Of Breath Discharge Medication List Bisoprolol-Hctz 5-6.25 mg [Ziac 5-6.25 MG] 1 tab PO BID 08/19/15 [History] Diphenox-Atrop 2.5-0.025 mg [Lomotil] 1 tab PO TID PRN 08/19/15 [History] Simvastatin [Zocor] 20 mg PO DAILY 08/19/15 [History] Tamsulosin [Flomax] 0.4 mg PO DAILY 08/19/15 [History] fentaNYL [Duragesic 75MCG/HR] 1 patch TRANSDERM Q72H 08/19/15 [History] Albuterol Inhaler [Ventolin Hfa Inhaler] 1 - 2 puff INHALATION RT-Q6H PRN [History] Furosemide [Lasix] 20 mg PO BID #60 tab 11/05/17 [Rx] Ipratropium/Albuterol Sulfate [Combivent Respimat Inhaler] 1 - 2 puff INHALATION RT-QID 11/05/17 [History] Lisinopril [Zestril] 5 mg PO BID #60 tab 11/05/17 [Rx] Potassium Chloride ER [K-Dur 20] 20 meq PO DAILY #30 tab 11/05/17 [Rx] Rivaroxaban [Xarelto] 15 mg PO BID-W/MEALS #42 tab 11/05/17 [Rx] Follow up Appointment(s)/Referral(s): Angelica Soto MD [STAFF PHYSICIAN] - 11/16/17 10:00 am (Wednesday) Jarret Morocho Jr, DO [Primary Care Provider] - 11/11/17 2:00 pm () Michael Conrad DO [Doctor of Osteopathic Medicine] - 2 Weeks Discharge Disposition: HOME SELF-CARE
[2017-11-05 16:44] LABS: Glucose,Whole Blood 103 mg/dL (75-99)
[2017-11-05] MEDS ORDERED: RIVAROXABAN 15 MG TAB PO SCH (17:30)
[2017-11-05 19:07] LABS: Hemoglobin A1C 6.5 % (4.0-6.0)
[2017-11-05] MEDS ORDERED: ATORVASTATIN 40 MG TAB PO SCH (21:00)
[2017-11-05] MEDS ORDERED: ATORVASTATIN 10 MG TAB PO SCH (21:00)
[2017-11-06] MEDS ORDERED: POTASSIUM CHLORIDE ER 20 MEQ TAB.ER PO SCH (09:00)
== END 2017-11-05 17:57 | disposition home or self-care (01) | DRG 176 ==
LOC: EC 23:19 → 6SEL 11-05 01:59
PROVIDERS: ADMIT Family Medicine; ATTEND Family Medicine
DX: I26.99 Other pulmonary embolism without acute cor pulmonale (principal); Z68.42 Body mass index [BMI] 45.0-49.9, adult; E66.01 Morbid (severe) obesity due to excess calories; J44.9 Chronic obstructive pulmonary disease, unspecified; G47.33 Obstructive sleep apnea (adult) (pediatric); I25.10 Atherosclerotic heart disease of native coronary artery without angina pectoris; I10 Essential (primary) hypertension; E78.5 Hyperlipidemia, unspecified; F17.210 Nicotine dependence, cigarettes, uncomplicated; Z95.5 Presence of coronary angioplasty implant and graft; Z85.038 Personal history of other malignant neoplasm of large intestine; Z79.01 Long term (current) use of anticoagulants; Z79.899 Other long term (current) drug therapy
CPT/HCPCS: 36415; 71046; 71275; 80053; 82550; 82553; 83036; 83735; 83880; 84484; 85025; 85379; 85610; 85730; 93005; 93306; 93970; 96374; 99285

== ENCOUNTER → 2018-08-23 | Outpatient (CLI) | payer MEDICARE ==
--- NOTE | 2018-08-23 16:53 | CT ---
EXAMINATION TYPE: CT brain wo con DATE OF EXAM: 08/23/2018 COMPARISON: None HISTORY: 57-year-old male Syncope with fall injury TECHNIQUE: Examination was done in axial plane without intravenous contrast. Coronal and sagittal r econstructions performed. CT DLP: 1219 mGycm Automated exposure control for dose reduction was used. FINDINGS: There is no evidence of acute intracranial hemorrhage, acute ischemic changes, mass, mass-effect, or extra-axial fluid collection. There is no effacement of cerebral sulci or basal subarachnoid cister ns. There is no hydrocephalus. There is no midline shift. Medrano-white matter distinction is preserv ed. Mild central cerebral atrophy. Paranasal sinuses and mastoid air cells well pneumatized. Orbits and globes are intact. No calvarial fractures. IMPRESSION: No acute intracranial abnormality seen.
--- NOTE | 2018-08-23 16:55 | US ---
EXAMINATION TYPE: US carotid duplex BILAT DATE OF EXAM: 08/23/2018 COMPARISON: Ct brain today CLINICAL HISTORY: R55 Syncope. Patient hit forehead and having syncope; smoker EXAM MEASUREMENTS: RIGHT: Peak Systolic Velocity (PSV) cm/sec ----- Right CCA: 62.3 ----- Right ICA: 77.8 ----- Right ECA: 111.9 ICA/CCA ratio: 1.2 RIGHT: End Diastole cm/sec ----- Right CCA: 16.1 ----- Right ICA: 24.9 ----- Right ECA: 14.7 LEFT: Peak Systolic Velocity (PSV) cm/sec ----- Left CCA: 77.2 ----- Left ICA: 91.1 ----- Left ECA: 125.5 ICA/CCA ratio: 1.2 LEFT: End Diastole cm/sec ----- Left CCA: 14.8 ----- Left ICA: 21.7 ----- Left ECA: 12.6 VERTEBRALS (direction of flow): Right Vertebral: Antegrade and vessel appears in extravertebral location Left Vertebral: Antegrade and appears within the vertebrae Rhythm: Normal Mild to moderate, and irregular wall changes are noted in bilateral carotid systems with elevated PSV noted in proximal Left ECA. IMPRESSION: Mild to moderate degree of grayscale atheromatous plaquing with no sonographically evide nt hemodynamically significant stenosis within either visualized internal or common carotid arterial system. Elevated velocity within the left external carotid artery is incidentally noted suggesting mild stenosis. Criteria for Assigning % of Stenosis / Diameter reduction (Estimation based on the indirect measurements of the internal carotid artery velocities (ICA PSV). 1. Normal (no stenosis)=ICA PSV < 125 cm/s: ratio < 2.0: ICA EDV<40 cm/s. 2. Less than 50% stenosis=ICA PSV < 125 cm/s: ratio < 2.0: ICA EDV<40 cm/s. 3. 50 to 69% stenosis=ICA PSV of 125 to 230 cm/s: ration 2.0 ? 4.0: ICA EDV 40-100 cm/s. 4. Greater than 70% stenosis to near occlusion= ICA PSV > 230 cm/s: ratio > 4.0: ICA EDV > 100 cm/s. 5. Near occlusion= ICA PSV velocities may be low or undetectable: variable ratio and ICA EDV. 6. Total occlusion=unable to detect flow.
== END | disposition home or self-care (01) ==
LOC: RADUSMAIN 15:15
PROVIDERS: ATTEND Family Medicine
DX: I77.89 Other specified disorders of arteries and arterioles (principal); R55 Syncope and collapse
CPT/HCPCS: 70450; 93880